=== PATIENT | female | born 1985 | race Caucasian/White ===

== ENCOUNTER 2016-09-01 07:16 | Emergency (ER) | payer BC, OTHER ==
[~2016-09-01] VITALS: Wt 54.3 kg
[2016-09-01 07:27] LABS: URINE BLOOD (Dip) POC 2+ (NEGATIVE)
[2016-09-01] MEDS ORDERED: CEPHALEXIN 500 MG CAP PO ONE (07:30)
--- NOTE | 2016-09-01 07:33 | ERD ---
ER Documentation Chief Complaint Date/Time DATE: 09/01/16 TIME: 07:31 Chief Complaint DYSURIA FOR 2 DAYS NO HEMATURIA RADIATING TO FRONT ABDOMEN. NO N/V HPI 31-year-old otherwise healthy young woman presents with dysuria 2 days, no other symptoms. Patient denies vaginal irritation or discharge, no new unprotected sexual intercourse, no weight loss, no fevers or chills, no back pain, no chest pain or shortness of breath. ROS All systems reviewed and are negative except as per history of present illness. PMhx/Soc Medical and Surgical Hx: pt denies Medical Hx, pt denies Surgical Hx Hx Alcohol Use: Yes Hx Substance Use: No Hx Tobacco Use: No Smoking Status: Never smoker FmHx Family History: No diabetes Physical Exam Vitals Vital Signs Date Time Temp Pulse Resp B/P Pulse Ox O2 Delivery O2 Flow Rate FiO2 09/01/16 07:17 98.0 91 20 138/86 100 Physical Exam GENERAL: Well-developed, well-nourished, well-hydrated, in no apparent distress , looks nontoxic in appearance HEENT: Moist mucous membranes, pink conjunctiva, no cervical spine tenderness or step-off deformities, no goiter, no jaundice or icterus, extraocular movements intact without pain. No submandibular induration, and no pharyngeal erythema NEURO: Alert and oriented 3, cranial nerves II through XII intact bilaterally, pupils equal round reactive to light, no focal deficits or facial asymmetry, sensation intact distally Strength 5/5 in upper and lower extremities bilaterally CARDIAC: Regular rate and rhythm, no murmurs rubs or gallops LUNGS: Clear bilaterally no wheezing crackles or stridor ABDOMEN: Soft nontender, no guarding, no rigidity, no rebound, no psoas sign no obturator sign. Normoactive bowel sounds SKIN: Warm and dry to touch, no abrasions, contusions, or hematomas, no lacerations, no ecchymosis, no target lesions, and without ulcers EXTREMITIES: No clubbing cyanosis or edema, calves are bilaterally symmetrical, no Homans sign, no popliteal cord sign. Distal pulses equal and bilateral PSYCH: Normal affect without agitation or irritability Results 24 hrs Laboratory Tests Test 09/01/16 07:26 Bedside Urine Blood 2+ Bedside Urine Glucose (UA) Negative Bedside Urine Ketones (LAB) Negative Bedside Urine Leukocyte Esterase (L Trace Bedside Urine Nitrite (LAB) Negative Bedside Urine Protein (LAB) Negative Bedside Urine pH (LAB) 7.0 Current Medications Medications (Trade) Dose Ordered Sig/Ирина Route PRN Reason Start Time Stop Time Status Last Admin Dose Admin Cephalexin (Keflex) 500 mg ONCE ONCE PO 09/01/16 07:30 09/01/16 07:31 Procedures/MDM Urine dip was negative for revealing trace leukocyte esterase. I administered cephalexin 500 mg p.o. 1. Patient feels much better at this time, and vital signs are normal, symptoms have improved. I did give strict instructions to return to the ED if symptoms continue or worsen, patient will otherwise follow-up with primary care physician. Patient understood instructions and agreed to plan. Departure Diagnosis: Primary Impression: UTI (urinary tract infection) Urinary tract infection type: acute cystitis Hematuria presence: without hematuria Qualified Code: N30.00 - Acute cystitis without hematuria Condition: Good Patient Instructions: Understanding Urinary Tract Infections (UTIs) BERNY RAMOS MD Sep 01, 2016 07:33
== END 2016-09-01 07:37 | disposition home or self-care (01) ==
LOC: FTE 07:16
DX: N30.00 Acute cystitis without hematuria (principal)
CPT/HCPCS: 81003; 99283

== ENCOUNTER → 2016-10-07 | Outpatient (CLI) | payer BC ==
--- NOTE | 2016-10-07 15:35 | RADRPT ---
PROCEDURE: US Pelvis. CLINICAL INDICATION: Pelvic pain. TECHNIQUE: The pelvis was evaluated with transabdominal and transvaginal sonography in the axial a nd sagittal planes. COMPARISON: No prior study is available for comparison. FINDINGS: Uterus: 8.0 x 3.5 x 4.5 cm. Endometrium: 7.8 mm. Right ovary: 3.5 x 2.4 x 2.3 cm. Left ovary: 2.9 x 1.6 x 2.6 cm. Uterine masses: None. Ovarian masses: There is a benign right ovarian cyst with no internal echoes or septations measuring 1.9 cm in maximal dimension. Color Doppler and pulsed Doppler sonography demonstrate normal flow to the ovaries. Other pelvic masses: None. Free fluid: None. IMPRESSION: 1. Benign 1.9 cm right ovarian cyst. No further evaluation required. 2. Otherwise normal pelvic ultrasound. RPTAT: QQ .Hemal Wilson MD, MD Date Time Electronically viewed and signed by .Hemal Wilson MD, MD on 10/07/2016 15:35 .R/
== END | disposition home or self-care (01) ==
LOC: U/S 09:04
PROVIDERS: ATTEND Physician Assistant
DX: R10.2 Pelvic and perineal pain (principal); N83.291 Other ovarian cyst, right side
CPT/HCPCS: 76830; 76856